=== PATIENT | female | born 1935 | race Caucasian/White ===

== ENCOUNTER 2019-11-08 17:14 | Inpatient (IN) | payer MEDICARE, MEDICAID ==
[~2019-11-08] VITALS: Ht 162.6 cm; Wt 79.4 kg
[2019-11-08 18:16] LABS: BASOPHILS % 1.1 % (0.0-2.0); EOSINOPHILS % 1.2 % (0.0-5.0); HEMATOCRIT. 38.6 % (36.0-48.0); HEMOGLOBIN. 12.3 g/dL (12.0-16.0); LYMPHOCYTES % 17.4 % (20.0-50.0); MEAN CORPUSCULAR VOLUME 87.6 fL (81.0-99.0); MEAN PLATELET VOLUME 9.3 fl (7.4-10.4); MONOCYTES % 5.8 % (2.0-8.0); NEUTROPHILS % 74.5 % (40.0-76.0); PLATELET 228 x1000/uL (130-400); RED BLOOD CELL COUNT 4.41 mill/uL (4.2-5.4); RED CELL DISTRIBUTION WIDTH 18.6 % (11.6-14.6)
[2019-11-08 18:24] LABS: CHLORIDE 88 mEq/L (98-107)
[2019-11-08 18:28] LABS: INR 1.2; PARTIAL THROMBOPLASTIN TIME 26.1 sec (23.4-31.0); PROTHROMBIN TIME 12.1 sec (9.6-11.0)
[2019-11-08] MEDS ORDERED: PIPERACILLIN/TAZ 3.375G PREMIX 50 ML IV ONE (18:45)
[2019-11-08] MEDS ORDERED: VANCOMYCIN 1 G PREMIX 200 ML IV SCH (18:45)
[2019-11-08 19:04] LABS: CLARITY URINE CLOUDY (CLEAR); COLOR URINE YELLOW (YELLOW); KETONES URINE NEGATIVE (NEGATIVE); LEUKOCYTE ESTERASE URINE 3+ (NEGATIVE); NITRITE URINE NEGATIVE (NEGATIVE); OCCULT BLOOD URINE 3+ (NEGATIVE); PROTEIN URINE 1+ (NEGATIVE); SPECIFIC GRAVITY URINE 1.011 (1.005-1.030); UROBILINOGEN URINE 0.2 E.U./dL (0.2-1.0)
[2019-11-08 19:12] LABS: BG CARBOXYHEMOGLOBIN 0.8 % (0.5-1.5); BG DEOXYHEMOGLOBIN 3.2 % (0.0-5.0); BG FRACTION INSPIRED OXYGEN 40; BG HCO3 ACT 31.1 mmol/L (22.0-26.0); BG METHEMOGLOBIN 0.3 % (0.0-1.5); BG OXYGEN SATURATION 96.8 % (92.0-98.5); BG OXYHEMOGLOBIN 95.7 % (94.0-97.0); BG PCO2 71.1 mmHg (35.0-45.0); BG PH 7.259 (7.350-7.450); BG PO2 98.2 mmHg (75.0-100.0); BG SAMPLE SITE RIGHT RADIAL; BG TOTAL HEMOGLOBIN 13.5 g/dL (12.0-18.0); BG VENT MODE NASAL CANNULA
[2019-11-08] MEDS ORDERED: FUROSEMIDE 100MG/10ML VIAL IVP ONE (19:30)
[2019-11-09] MEDS ORDERED: FUROSEMIDE 40MG/4ML VIAL IVP ONE (00:30)
[2019-11-09 01:00] LABS: BG BASE EXCESS 4.7 mmol/L (-2.0-2.0); BG CARBOXYHEMOGLOBIN 0.9 % (0.5-1.5); BG DEOXYHEMOGLOBIN 8.2 % (0.0-5.0); BG FRACTION INSPIRED OXYGEN 40; BG HCO3 ACT 34.3 mmol/L (22.0-26.0); BG METHEMOGLOBIN 0.2 % (0.0-1.5); BG OXYGEN SATURATION 91.7 % (92.0-98.5); BG OXYHEMOGLOBIN 90.7 % (94.0-97.0); BG PCO2 77.4 mmHg (35.0-45.0); BG PH 7.264 (7.350-7.450); BG SAMPLE SITE RIGHT RADIAL; BG TOTAL HEMOGLOBIN 13.5 g/dL (12.0-18.0); BG VENT MODE MASK - BIPAP; BG VENT RATE 16 set
[2019-11-09 04:35] LABS: BG BASE EXCESS 7.1 mmol/L (-2.0-2.0); BG BILEVEL POS AIRWAY PRESSURE 16/5; BG CARBOXYHEMOGLOBIN 0.8 % (0.5-1.5); BG DEOXYHEMOGLOBIN 6.5 % (0.0-5.0); BG FRACTION INSPIRED OXYGEN 40; BG HCO3 ACT 36.2 mmol/L (22.0-26.0); BG METHEMOGLOBIN 0.2 % (0.0-1.5); BG OXYGEN SATURATION 93.4 % (92.0-98.5); BG OXYHEMOGLOBIN 92.5 % (94.0-97.0); BG PCO2 75.3 mmHg (35.0-45.0); BG PO2 72.1 mmHg (75.0-100.0); BG SAMPLE SITE RIGHT RADIAL; BG TOTAL HEMOGLOBIN 13.4 g/dL (12.0-18.0); BG VENT MODE MASK - BIPAP; BG VENT RATE 16 set
[2019-11-09] MEDS ORDERED: GUAIFENESIN 200MG/10ML SUGAR FREE UDC PO PRN (06:15)
[2019-11-09] MEDS ORDERED: IPRATROPIUM/ALBUTEROL 0.5-3(2.5)MG/3ML NEB NEB PRN (06:15)
[2019-11-09] MEDS ORDERED: LEVOFLOXACIN 500MG PREMIX 100 ML IV SCH ×2 (06:15→08:00)
[2019-11-09] MEDS ORDERED: DOCUSATE SODIUM 100MG CAPSULE PO PRN (06:15)
[2019-11-09] MEDS ORDERED: CLONIDINE 0.1MG TABLET PO PRN (06:15)
[2019-11-09] MEDS ORDERED: DEXTROSE 50% WATER 50ML SYRINGE IV PRN (06:30)
[2019-11-09] MEDS: BLOOD SUGAR DIAGNOSTIC STRIP TEST SCH ×4 (06:55→21:17)
[2019-11-09 08:00] VITALS: BP_SYST 160; BP_SYST 171; BP_DIAS 90; BP_DIAS 99
[2019-11-09] MEDS ORDERED: ENOXAPARIN 40MG/0.4ML SYR SUBCUT SCH (09:00)
[2019-11-09] MEDS: INSULIN LISPRO 100 UNITS/ML SUBCUT SCH ×4 (10:12→21:16)
[2019-11-09 12:00] VITALS: BP 149/62
[2019-11-09] MEDS: DILTIAZEM HCL 30MG TABLET PO SCH ×2 (13:27→21:25)
[2019-11-09 16:00] VITALS: BP 116/73
[2019-11-09 20:00] VITALS: BP 137/76
[2019-11-09] MEDS: ACETAMINOPHEN 325MG TABLET PO PRN (21:07)
[2019-11-10] VITALS (9 sets, daily range): BP systolic 104–133; BP diastolic 58–86
[2019-11-10] MEDS: DILTIAZEM HCL 30MG TABLET PO SCH ×4 (05:52→23:40)
[2019-11-10 06:50] LABS: BASOPHILS % 0.7 % (0.0-2.0); EOSINOPHILS % 0.5 % (0.0-5.0); HEMATOCRIT. 34.1 % (36.0-48.0); HEMOGLOBIN. 11.1 g/dL (12.0-16.0); LYMPHOCYTES % 14.1 % (20.0-50.0); MEAN CORPUSCULAR HEMOGLOBIN 28.1 pg (28.0-32.0); MEAN CORPUSCULAR VOLUME 86.1 fL (81.0-99.0); MEAN PLATELET VOLUME 9.3 fl (7.4-10.4); MONOCYTES % 7.5 % (2.0-8.0); NEUTROPHILS % 77.2 % (40.0-76.0); PLATELET 191 x1000/uL (130-400); RED BLOOD CELL COUNT 3.96 mill/uL (4.2-5.4); RED CELL DISTRIBUTION WIDTH 18.9 % (11.6-14.6)
[2019-11-10 07:01] LABS: CHLORIDE 89 mEq/L (98-107)
[2019-11-10 07:22] LABS: LDL CHOLESTEROL 48 mg/dL (5-100)
[2019-11-10 07:28] LABS: HDL CHOLESTEROL 58 mg/dL (40-59)
[2019-11-10] MEDS: BLOOD SUGAR DIAGNOSTIC STRIP TEST SCH ×4 (07:48→20:41)
[2019-11-10] MEDS ORDERED: SODIUM BICARBONATE 4% (2.4MEQ) 5ML VIAL IV ONE (08:10)
[2019-11-10] MEDS: INSULIN LISPRO 100 UNITS/ML SUBCUT SCH ×4 (08:18→20:41)
[2019-11-10] MEDS ORDERED: DILTIAZEM HCL 5MG/ML 5ML VIAL IV SCH (11:30)
[2019-11-10 11:58] LABS: BG BASE EXCESS 10.1 mmol/L (-2.0-2.0); BG BILEVEL POS AIRWAY PRESSURE 16/5; BG CARBOXYHEMOGLOBIN 0.6 % (0.5-1.5); BG DEOXYHEMOGLOBIN 5.1 % (0.0-5.0); BG FRACTION INSPIRED OXYGEN 100; BG HCO3 ACT 38.1 mmol/L (22.0-26.0); BG METHEMOGLOBIN 0.2 % (0.0-1.5); BG OXYGEN SATURATION 94.9 % (92.0-98.5); BG OXYHEMOGLOBIN 94.1 % (94.0-97.0); BG PCO2 68.3 mmHg (35.0-45.0); BG PH 7.364 (7.350-7.450); BG PO2 78.6 mmHg (75.0-100.0); BG SAMPLE SITE RIGHT RADIAL; BG TOTAL HEMOGLOBIN 12.8 g/dL (12.0-18.0); BG VENT MODE MASK - BIPAP; BG VENT RATE 16 set
[2019-11-10] MEDS: LEVOFLOXACIN 250MG PREMIX 50 ML IV SCH (12:34)
[2019-11-10] MEDS ORDERED: RIVA2.5T PO (16:38)
[2019-11-10] MEDS ORDERED: PANT40TA4 PO (16:40)
[2019-11-10] MEDS ORDERED: METO100T16 MT (16:41)
[2019-11-10] MEDS ORDERED: FURO80TA3 PO (16:41)
[2019-11-10] MEDS ORDERED: LISI2.5T47 PO (16:42)
[2019-11-10] MEDS ORDERED: PRIM50TA31 PO (16:43)
[2019-11-10] MEDS ORDERED: ATOR10TA69 PO (16:44)
[2019-11-11] VITALS (12 sets, daily range): BP systolic 101–133; BP diastolic 41–89
[2019-11-11] MEDS: ONDANSETRON HCL 4MG/2ML INJ IV PRN (01:20)
[2019-11-11] MEDS: DILTIAZEM HCL 30MG TABLET PO SCH ×2 (05:33→11:12)
[2019-11-11] MEDS: ACETAMINOPHEN 325MG TABLET PO PRN (05:33)
[2019-11-11] MEDS: BLOOD SUGAR DIAGNOSTIC STRIP TEST SCH ×4 (07:49→21:15)
[2019-11-11] MEDS: INSULIN LISPRO 100 UNITS/ML SUBCUT SCH ×4 (07:57→21:16)
[2019-11-11] MEDS ORDERED: LACTULOSE 20G/30ML UDC PO PRN (10:15)
[2019-11-11] MEDS ORDERED: DIGOXIN 500MCG/2ML AMP IV NR (12:30)
[2019-11-11] MEDS: PRIMIDONE 50MG TABLET PO SCH ×2 (13:06→17:47)
[2019-11-11] MEDS: LEVOFLOXACIN 250MG PREMIX 50 ML IV SCH (14:18)
[2019-11-11] MEDS ORDERED: AMIODARONE HCL 900 MG in DEXT 5% WATER 482 ML IV SCH (15:00)
[2019-11-11] MEDS: ENOXAPARIN 80MG/0.8ML SYR SUBCUT SCH (17:06)
[2019-11-11] MEDS: DOCUSATE SODIUM 100MG CAPSULE PO SCH (17:47)
[2019-11-11] MEDS: LORAZEPAM 2MG/ML CPJ IV PRN (22:21)
[2019-11-12] VITALS (13 sets, daily range): BP systolic 95–141; BP diastolic 42–78
[2019-11-12] MEDS: ENOXAPARIN 80MG/0.8ML SYR SUBCUT SCH ×2 (04:16→16:06)
[2019-11-12] MEDS: BLOOD SUGAR DIAGNOSTIC STRIP TEST SCH ×4 (07:55→20:27)
[2019-11-12] MEDS: PRIMIDONE 50MG TABLET PO SCH ×3 (08:37→17:25)
[2019-11-12] MEDS: DOCUSATE SODIUM 100MG CAPSULE PO SCH ×2 (08:37→17:25)
[2019-11-12] MEDS: INSULIN LISPRO 100 UNITS/ML SUBCUT SCH ×4 (08:39→20:28)
[2019-11-12] MEDS: LEVOFLOXACIN 250MG PREMIX 50 ML IV SCH (12:37)
[2019-11-13] VITALS (11 sets, daily range): BP systolic 109–143; BP diastolic 63–81
[2019-11-13] MEDS: LORAZEPAM 2MG/ML CPJ IV PRN (00:45)
[2019-11-13] MEDS: ENOXAPARIN 80MG/0.8ML SYR SUBCUT SCH ×2 (03:09→17:03)
[2019-11-13] MEDS: BLOOD SUGAR DIAGNOSTIC STRIP TEST SCH ×3 (07:30→17:08)
[2019-11-13] MEDS: INSULIN LISPRO 100 UNITS/ML SUBCUT SCH ×3 (09:02→18:03)
[2019-11-13] MEDS: PRIMIDONE 50MG TABLET PO SCH ×3 (09:03→17:03)
[2019-11-13] MEDS: DOCUSATE SODIUM 100MG CAPSULE PO SCH ×2 (09:03→17:03)
[2019-11-13] MEDS: ACETAMINOPHEN 325MG TABLET PO PRN (09:03)
[2019-11-13] MEDS: LEVOFLOXACIN 250MG PREMIX 50 ML IV SCH (11:28)
[2019-11-13] MEDS ORDERED: AMIODARONE HCL 200 MG TABLET PO SCH (14:00)
[2019-11-13 15:17] LABS: BASOPHILS % 1.4 % (0.0-2.0); EOSINOPHILS % 0.8 % (0.0-5.0); HEMATOCRIT. 37.1 % (36.0-48.0); HEMOGLOBIN. 11.9 g/dL (12.0-16.0); MEAN CORPUSCULAR HEMOGLOBIN 28.5 pg (28.0-32.0); MEAN PLATELET VOLUME 9.2 fl (7.4-10.4); MONOCYTES % 9.7 % (2.0-8.0); NEUTROPHILS % 72.1 % (40.0-76.0); PLATELET 207 x1000/uL (130-400); RED BLOOD CELL COUNT 4.17 mill/uL (4.2-5.4); RED CELL DISTRIBUTION WIDTH 18.9 % (11.6-14.6)
[2019-11-13] MEDS ORDERED: NYSTATIN POWDER 15GM TOP SCH (17:15)
[2019-11-13] MEDS: ONDANSETRON HCL 4MG/2ML INJ IV PRN (18:27)
[2019-11-28] MEDS ORDERED: AMIODARONE HCL 200 MG TABLET PO SCH (09:00)
== END 2019-11-13 23:29 | disposition hospice, home (50) | DRG 871 ==
LOC: ER 17:14 → 6WST 11-09 02:38 → ENRESERV 11-09 03:59 → 5EST 11-10 13:30
PROVIDERS: ADMIT Hospitalist; ATTEND Hospitalist
PROC: 0W993ZZ Drainage of Right Pleural Cavity, Percutaneous Approach (ICD-10-PCS; principal; 2019-11-13)
DX: A41.59 Other Gram-negative sepsis (principal); I50.23 Acute on chronic systolic (congestive) heart failure; J96.02 Acute respiratory failure with hypercapnia; E44.1 Mild protein-calorie malnutrition; E87.1 Hypo-osmolality and hyponatremia; E87.2 Acidosis; G93.40 Encephalopathy, unspecified; I42.9 Cardiomyopathy, unspecified; N39.0 Urinary tract infection, site not specified; J44.1 Chronic obstructive pulmonary disease with (acute) exacerbation; J90 Pleural effusion, not elsewhere classified; I48.0 Paroxysmal atrial fibrillation; E11.65 Type 2 diabetes mellitus with hyperglycemia; B96.89 Other specified bacterial agents as the cause of diseases classified elsewhere; I11.0 Hypertensive heart disease with heart failure; D14.2 Benign neoplasm of trachea; I50.9 Heart failure, unspecified; Z99.81 Dependence on supplemental oxygen; Z68.30 Body mass index [BMI] 30.0-30.9, adult; Z79.899 Other long term (current) drug therapy
CPT/HCPCS: 32555; 36415; 36600; 71045; 71250; 74176; 80048; 80053; 80061; 81003; 82040; 82375; 82550; 82805; 82962; 83036; 83605; 83615; 83880; 84134; 84145; 84443; 84484; 85025; 87077; 87186; 88305; 88312; 93005; 93306; 93970; 94660; 96365; 99291; J0282; J1160; J1650; J1815; J1940; J1956; J2060; J2405; J2543; J3370; J3490; J7060